=== PATIENT | male | born 1955 | race Caucasian/White ===

== ENCOUNTER → 2017-01-17 | Outpatient (CLI) | payer BC ==
--- NOTE | 2017-01-17 11:05 | KCIC ---
PROCEDURE MRI study the right shoulder without contrast HISTORY Right shoulder pain. Patient fell 1 month ago. Limited range of motion. TECHNIQUE Noncontrast MRI sequences of the right shoulder were performed in all 3 planes. COMPARISON None available. FINDINGS There is a large complete tear of the rotator cuff involving the infraspinatus and supraspinatus tendons with associated muscle atrophy. This completely uncovers the humeral head which results in superior subluxation of the humeral head with respect to the glenoid fossa. A moderate amount of fluid is seen within the subdeltoid and subacromial bursa as a result. 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 There is widening of the AC joint measuring 14 millimeters. It is consistent with an AC joint separation. The inferior acromioclavicular ligament is disrupted. Fluid is seen within this joint space. There is mild spurring of the inferior edge of the acromial process. A type 3 acromial process is seen. These findings may impinge the acromial humeral space. There are chronic erosive changes of the lateral aspect of the humeral head secondary to chronic impingement. The subscapularis tendon is intact although there is increased signal consistent with tendinosis. The tendon of the long head of the biceps is intact. There is tendinosis of the intra-articular portion of this tendon. No bone contusion or fracture or marrow infiltrative process is seen. There is a moderate size glenohumeral joint. There is posterior subluxation of the humeral head with respect to glenoid fossa in addition to the superior subluxation mentioned previously and this most likely is secondary to the large rotator cuff tear. Otherwise the articular cartilage of this joint compartment appears intact. A small chondral labral tear of the posterior aspect of the glenoid labrum is seen. Irregularity and fibrillation and increased signal is seen within the superior aspect of the glenoid labrum at the attachment of the biceps anchor. This may represent a tear here. No spinoglenoid notch ganglion cyst is seen. IMPRESSION Large complete rotator cuff tear resulting in superior and posterior subluxation of the humeral head. Impingement of the acromial humeral space. AC joint separation with disruption of the inferior acromioclavicular ligament. Chondrolabral tear of the posterior aspect of the glenoid labrum. The superior glenoid labrum appears irregular and fibrillated with increased signal near the biceps anchor attachment. A tear here is possible as well. Electronically signed by: Dominic Kenny MD (Jan 17, 2017 11:03:43)
== END | disposition home or self-care (01) ==
LOC: KCIC MRI 08:37
PROVIDERS: ATTEND Orthopaedic Surgery
DX: M75.121 Complete rotator cuff tear or rupture of right shoulder, not specified as traumatic (principal); M19.011 Primary osteoarthritis, right shoulder; S43.51XA Sprain of right acromioclavicular joint, initial encounter; X58.XXXA Exposure to other specified factors, initial encounter; Y93.89 Activity, other specified; Y92.89 Other specified places as the place of occurrence of the external cause; Y99.8 Other external cause status
CPT/HCPCS: 73221